=== PATIENT | female | born 1965 | race Caucasian/White ===

== ENCOUNTER → 2016-06-30 | Outpatient (CLI) | payer OTHER ==
--- OUTSIDE RECORDS SUMMARY | 2016-06-30 11:18 | XMS REPORT ---
Author Author JARED RUTH eClinicalWorks Address Unknown Phone Unavailable Care Team Providers Care Bi Specialist Name Role Phone JARED RUTH CP Unavailable Allergies, Adverse Reactions, Alerts Substance Reaction Event Type N.K.D.A. Info Not Available Non Drug Allergy Problems Problem Type Condition Code Onset Dates Condition Status Assessment Unspecified asthma J45.909 Active Problem Allergic rhinitis due to pollen J30.1 Active Assessment Hyperlipidemia E78.5 Active Problem Hyperlipidemia E78.5 Active Problem Obsessive-compulsive disorder F42 Active Problem Migraine, unspecified, not intractable, without status migrainosus G43.909 Active Problem Unspecified asthma J45.909 Active Problem Tension headache G44.209 Active Problem Depression F32.9 Active Problem Elevated blood-pressure reading without diagnosis of hypertension R03.0 Active Assessment Tension headache G44.209 Active Assessment Migraine, unspecified, not intractable, without status migrainosus G43.909 Active Assessment Allergic rhinitis due to pollen J30.1 Active Assessment Depression F32.9 Active Medications Medication Code System Code Instructions Start Date End Date Status Dosage Loratadine [facility] 82151378779 10 MG TAKE ONE TABLET BY MOUTH AT BEDTIME ProAir HFA [facility] [address]-80 90 mcg/actuation May 21, 2014 inhale 2 puffs by Inhalation route every 4 hours as needed PRN shortness of breath/ cough Tizanidine HCl [facility] [address]-24 2 MG Orally every 8 hrs Feb 13, 2015 1 tablet as needed Imitrex [facility] [address]-44 100 mg October 19, 2013 1 tablet by Oral route 1 time per day and repeat once more after 2 hours if headache recurs PRN for migraine Simvastatin [facility] [address]-97 40 MG Orally Once a day 1 tablet in the evening Zoloft [facility] [address]-31 100 MG Orally Once a day November 12, 2015 2 tablet Procedures Procedure Coding System Code Date Office Visit, Est Pt., Level 3 CPT-4 07433 December 05, 2015 Vital Signs Date/Time: December 05, 2015 Cardiac Monitoring Heart Rate 78 bpm Weight 237.2 lbs Height 63 in Blood Pressure Diastolic 83 mmHg Blood Pressure Systolic 132 mmHg Results No Known Results Summary Purpose eClinicalWorks Submission
--- NOTE | 2016-07-01 16:55 | Diagnostic Imaging Report ---
EXAMINATION: Bilateral screening mammogram with a Computer Aided Detection (CAD) system. INDICATION: Screening. PERSONAL HISTORY: No current complaints stated on the questionnaire. COMPARISON: 10/30/2014. FINDINGS: The breasts are composed of scattered fibroglandular densities. There are from scattered benign-appearing calcifications. There is an oval focal asymmetry seen in the lateral aspect of the left breast that appears more prominent compared to the prior exam. The right breast demonstrates no definite change. IMPRESSION: Focal compression views and ultrasound evaluation for a 5 mm focal asymmetry in the left breast lateral aspect would be recommended. ACR BI-RADS Category 0: Incomplete. (Needs additional imaging evaluation). Result letter will be mailed to the patient. Note: At least 10% of breast cancer is not imaged by mammography. Dictated by: Dictated on workstation # [id number]
== END ==
LOC: RAD 11:15
PROVIDERS: ATTEND Family Medicine
DX: Z12.31 Encounter for screening mammogram for malignant neoplasm of breast (principal)
CPT/HCPCS: 77067

== ENCOUNTER → 2016-07-16 | Outpatient (CLI) | payer OTHER ==
--- NOTE | 2016-07-16 18:37 | Diagnostic Imaging Report ---
EXAMINATION: Ultrasound of the left breast. INDICATION: Abnormal mammogram. FINDINGS: The screening mammogram performed on 06/30/2016 noted a 5 mm focal asymmetry in the lateral aspect of the left breast. The diagnostic mammogram performed earlier today suggests that this density was most likely benign. On this exam, in the 2 o'clock position of the left breast, roughly 3 cm from the nipple, there is a 5 x 10 mm oval avascular hyperechoic area. This measures larger than the density seen on the mammogram, and I am not certain that this finding and the mammographic finding are one and the same. This hyperechoic lesion is of uncertain etiology, although most likely this represents a small lipoma. There is no other discrete solid or cystic mass identified. IMPRESSION: There is a small 10 mm hypoechoic lesion in the 2 o'clock position of the left breast. Whether this corresponds to the density seen on mammogram is not certain. This finding is most likely benign, but a short-term (three-month) followup ultrasound exam would be recommended for further evaluation. ACR BI-RADS Category 3: Probably benign findings. Dictated by: Dictated on workstation # [id number]
--- NOTE | 2016-07-16 20:03 | Diagnostic Imaging Report ---
INDICATION: Abnormal screening mammogram. EXAMINATION: Left breast digital diagnostic mammogram with CAD. The current study was also evaluated with a Computer Aided Detection (CAD) system. FINDINGS: The screening mammogram performed on 06/30/16 noted a small, 5 mm, oval asymmetry in the lateral aspect of the left breast. This did seem somewhat more conspicuous than on the prior exam of 10/30/14. The compression views of this area show that it has a generally benign appearance. I would recommend that ultrasound be performed to better evaluate this finding. IMPRESSION: The small nodular density in the lateral aspect of the left breast is most likely a benign process. Ultrasound would be recommend for further study. ACR BI-RADS Category 0: Incomplete. (Needs additional imaging evaluation). Result letter will be mailed to the patient. Note: At least 10% of breast cancer is not imaged by mammography. Dictated by: Dictated on workstation # [id number]
== END ==
LOC: RAD 07:39
PROVIDERS: ATTEND Family Medicine
DX: R92.8 Other abnormal and inconclusive findings on diagnostic imaging of breast (principal)
CPT/HCPCS: 76642

== ENCOUNTER → 2016-10-26 | Outpatient (CLI) | payer OTHER ==
--- NOTE | 2016-10-26 19:15 | Diagnostic Imaging Report ---
Left breast ultrasound. INDICATION: Follow-up lesion seen on prior exam. COMPARISON: 07/16/2016. FINDINGS: There is a circumscribed oval hyperechoic mass similar to the prior study at the 2 o'clock zone 3 cm from the nipple measuring 0.9 x 0.5 x 0.8 cm. No significant changes seen. Surrounding tissue appears unremarkable. No internal vascularity with color Doppler is noted. IMPRESSION: Hyperechoic lesion at the 2 o'clock zone is unchanged and may relate to a prominent fat lobule. Another follow-up ultrasound when the patient is due for her next bilateral mammogram in June 2017 is recommended to ensure stability. ACR BI-RADS Category 3: Probably benign findings. Dictated by: Dictated on workstation # [id number]
== END ==
LOC: RAD 13:05
PROVIDERS: ATTEND Family Medicine
DX: R92.8 Other abnormal and inconclusive findings on diagnostic imaging of breast (principal)
CPT/HCPCS: 76642

== ENCOUNTER 2017-05-10 10:30 | Emergency (ER) | payer SELFPAY ==
[~2017-05-10] VITALS: Ht 160 cm; Wt 108.9 kg
--- OUTSIDE RECORDS SUMMARY | 2017-05-10 10:41 | XMS REPORT ---
Author Author FARAZ JARED Organization [facility] Address [address] [place] [address] Care Team Providers Care Stretch Press Operator Name Role Phone RAMON RUTHY Unavailable PROBLEMS Type Condition ICD9-CM Code [id number] Code Onset Dates Condition Status SNOMED Code Problem Allergic rhinitis due to pollen J30.1 Active 32195189 Problem Tension headache G44.209 Active 409290971 Problem Unspecified asthma J45.909 Active 549116738 Problem Migraine, unspecified, not intractable, without status migrainosus G43.909 Active 01807142 Problem Obsessive-compulsive disorder F42 Active 512228608 Problem Elevated blood-pressure reading without diagnosis of hypertension R03.0 Active 595753981 Problem Abnormal mammogram of left breast R92.8 Active 552116259 Problem Depression F32.9 Active 06327973 Problem Hyperlipidemia E78.5 Active 96757525 ALLERGIES Substance Reaction Event Type Date Status N.K.D.A. Unknown Non Drug Allergy May, Unknown SOCIAL HISTORY No smoking Hx information available PLAN OF CARE Activity Details Follow Up 1 Year Reason: VITAL SIGNS Height 63 in 2016-06-17 Weight 245 lbs 2016-06-17 Temperature 97.8 degrees Fahrenheit 2016-06-17 Heart Rate 88 bpm 2016-06-17 Respiratory Rate 20 2016-06-17 BMI 43.40 kg/m2 2016-06-17 Blood pressure systolic 100 mmHg 2016-06-17 Blood pressure diastolic 72 mmHg 2016-06-17 MEDICATIONS Medication Instructions Dosage Frequency Start Date End Date Duration Status ProAir HFA 90 mcg/actuation inhale 2 puffs by Inhalation route every 4 hours as needed PRN shortness of breath/cough Apr, Active Imitrex 100 mg 1 tablet by Oral route 1 time per day and repeat once more after 2 hours if headache recurs PRN for migraine September, Active Zoloft 100 MG Orally Once a day 2 tablet 24h Oct, 90 days Active Ibuprofen 600 MG Orally 3 times a day 1 tablet as needed 8h 30 days Active Simvastatin 40 MG Orally Once a day 1 tablet in the evening 24h 30 days Active Loratadine 10 MG TAKE ONE TABLET BY MOUTH AT BEDTIME 30 Active RESULTS Name Result Date Reference Range PAP TEST W/ HPV REGARDLESS 2016-06-17 DIAGNOSIS: Specimen adequacy: Clinician provided ICD10: Performed by: . . Note: HPV, high-risk Negative Negative PDF Report 2016-06-17 PDF Report1 [facility] Mammogram, Bilateral Screening 2016-06-30 PROCEDURES Procedure Date Ordered Related Diagnosis Body Site SPECIMEN HANDLING Jun 17, 2016 Preventive Care Est Pt. Age 40-64 Jun 17, 2016 IMMUNIZATIONS No Known Immunizations
--- OUTSIDE RECORDS SUMMARY | 2017-05-10 10:41 | XMS REPORT ---
Author Author JARED RUTH eClinicalWorks Address Unknown Phone Unavailable Care Team Providers Care Supplier Quality Manager Name Role Phone JARED RUTH CP Unavailable [...] Start Date End Date Status Dosage Loratadine [facility] 13297434030 10 MG TAKE ONE TABLET BY MOUTH AT BEDTIME ProAir HFA [facility] [address]-91 90 mcg/actuation May 21, 2014 inhale 2 puffs by Inhalation route every 4 hours as needed PRN shortness of breath/ cough Tizanidine HCl [facility] [address]-64 2 MG Orally every 8 hrs Feb 13, 2015 1 tablet as needed Imitrex [facility] [address]-56 100 mg October 19, 2013 1 tablet by Oral route 1 time per day and repeat once more after 2 hours if headache recurs PRN for migraine Simvastatin [facility] [address]-16 40 MG Orally Once a day 1 tablet in the evening Zoloft [facility] [address]-15 100 MG Orally Once a day November 12, 2015 2 tablet Procedures Procedure Coding System Code Date Office Visit, Est Pt., Level 3 CPT-4 93002 December 05, 2015 Vital Signs Date/Time: December 05, 2015 Cardiac Monitoring Heart Rate 78 bpm Weight 237.2 lbs Height 63 in Blood Pressure Diastolic 83 mmHg Blood Pressure Systolic 132 mmHg Results No Known Results Summary Purpose eClinicalWorks Submission
--- OUTSIDE RECORDS SUMMARY | 2017-05-10 10:41 | XMS REPORT ---
Author Author JARED RUTH Organization [facility] Address [address] [place] [address] Care Team Providers Care Fabrication Specialist Name Role Phone JARED RUTH Unavailable PROBLEMS Type Condition ICD9-CM Code [id number] Code Onset Dates Condition Status SNOMED Code Problem Allergic rhinitis due to pollen J30.1 Active 26982054 Problem Tension headache G44.209 Active 827143048 Problem Unspecified asthma J45.909 Active 704010233 Problem Migraine, unspecified, not intractable, without status migrainosus G43.909 Active 41962475 Problem Obsessive-compulsive disorder F42 Active 192543987 Problem Elevated blood-pressure reading without diagnosis of hypertension R03.0 Active 478628919 Problem Abnormal mammogram of left breast R92.8 Active 637893347 Problem Depression F32.9 Active 41619613 Problem Hyperlipidemia E78.5 Active 06630289 ALLERGIES No Information SOCIAL HISTORY Never Assessed PLAN OF CARE VITAL SIGNS MEDICATIONS Unknown Medications RESULTS Name Result Date Reference Range HEPATITIS PROFILE 2016-07-06 Hep A Ab, IgM Negative Negative HBsAg Screen Negative Negative Hep B Core Ab, IgM Negative Negative Hep C Virus Ab <0.1 0.0-0.9 PROCEDURES Procedure Date Ordered Result Body Site ACUTE HEPATITIS PANEL Jul 06, 2016 VENIPUNCT, ROUTINE* Jul 06, 2016 IMMUNIZATIONS No Known Immunizations MEDICAL (GENERAL) HISTORY Type Description Date Medical History asthma Medical History hyperlipidemia Medical History depression Medical History anxiety Medical History obsessive-compulsive personality disorder Medical History cervical cancer: [facility]; s/p MICHELL/BSO w/ Dr. Guzman in 2007. 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
--- OUTSIDE RECORDS SUMMARY | 2017-05-10 10:41 | XMS REPORT ---
Author JARED Duran eClinicalWorks Address Unknown Phone Unavailable Care Team Providers Care Roustabout Pusher Name Role Phone JARED RUTH Unavailable Allergies, Adverse Reactions, Alerts Substance Reaction Event Type N.K.D.A. Info Not Available Non Drug Allergy Problems Problem Type Condition Code Onset Dates Condition Status Assessment Obsessive compulsive disorder 300.3 Active Assessment Hyperlipidemia 272.4 Active Assessment Tension headache 307.81 Active Problem Obsessive compulsive disorder 300.3 Active Problem Depression 311 Active Problem Hyperlipidemia 272.4 Active Problem Tension headache 307.81 Active Problem Allergic rhinitis due to pollen 477.0 Active Problem Elevated blood pressure reading without diagnosis of hypertension 796.2 Active Problem Asthma, unspecified, unspecified status 493.90 Active Assessment Nevus 216.9 Active Assessment Migraine headache 346.90 Active Assessment Asthma, unspecified, unspecified status 493.90 Active Assessment Neck muscle spasm 728.85 Active Medications Medication Code System Code Instructions Start Date End Date Status Dosage Loratadine [facility] [address]-50 10 mg Jun 08, 2014 take 1 tablet by Oral route 1 time per day take at hs Zoloft [facility] [address]-35 100 mg 1 TAB orally once a day Jun 08, 2014 take 2 tablets by Oral route 1 time per day Tizanidine HCl [facility] [address]-34 2 MG Orally every 8 hrs Feb 13, 2015 1 tablet as needed Ibuprofen [facility] [address]-73 600 MG Orally Three times a day as needed Feb 13, 2015 Jun 13, 2015 1 tablet Simvastatin [facility] [address]-63 40 MG Orally Once a day 1 tablet in the evening Imitrex [facility] [address]-37 100 mg October 19, 2013 1 tablet by Oral route 1 time per day and repeat once more after 2 hours if headache recurs PRN for migraine ProAir HFA [facility] [address]-34 90 mcg/actuation May 21, 2014 inhale 2 puffs by Inhalation route every 4 hours as needed PRN shortness of breath/ cough Procedures Procedure Coding System Code Date Office Visit, Est Pt., Level 3 CPT-4 80494 Feb 13, 2015 Vital Signs Date/Time: Feb 13, 2015 Temperature 98.0 F Weight 243.7 lbs Height 63 in BMI 43.16 Index Blood Pressure Diastolic 90 mmHg Blood Pressure Systolic 119 mmHg Cardiac Monitoring Heart Rate 88 bpm Results No Known Results Summary Purpose eClinicalWorks Submission
--- OUTSIDE RECORDS SUMMARY | 2017-05-10 10:41 | XMS REPORT ---
Author Author FARAZ JARED Organization [facility] Address [address] [place] [address] Care Team Providers Care Special Procedures Tech Name Role Phone ROBERT RUTHHANY Unavailable PROBLEMS Type Condition ICD9-CM Code [id number] Code Onset Dates Condition Status SNOMED Code Problem Allergic rhinitis due to pollen J30.1 Active 94053750 Problem Tension headache G44.209 Active 908088348 Problem Unspecified asthma J45.909 Active 050982668 Problem Migraine, unspecified, not intractable, without status migrainosus G43.909 Active 52326970 Problem Obsessive-compulsive disorder F42 Active 398158834 Problem Elevated blood-pressure reading without diagnosis of hypertension R03.0 Active 213085839 Problem Abnormal mammogram of left breast R92.8 Active 440480702 Problem Depression F32.9 Active 19767051 Problem Hyperlipidemia E78.5 Active 54617574 ALLERGIES No Information SOCIAL HISTORY Never Assessed PLAN OF CARE VITAL SIGNS MEDICATIONS Medication Instructions Dosage Frequency Start Date End Date Duration Status Simvastatin 40 mg Orally Once a day 1 tablet in the evening 24h 30 days Active RESULTS No Results PROCEDURES No Known procedures IMMUNIZATIONS No Known Immunizations MEDICAL (GENERAL) HISTORY [...]
--- OUTSIDE RECORDS SUMMARY | 2017-05-10 10:41 | XMS REPORT ---
Author Author FARAZ JARED Organization [facility] Address [address] [place] [address] Care Team Providers Care Medical Reception Name Role Phone ROBERT RUTHHANY Unavailable PROBLEMS Type Condition ICD9-CM Code [id number] Code Onset Dates Condition Status SNOMED Code Problem Allergic rhinitis due to pollen J30.1 Active 74753737 Problem Tension headache G44.209 Active 997050078 Problem Unspecified asthma J45.909 Active 823084915 Problem Migraine, unspecified, not intractable, without status migrainosus G43.909 Active 90498450 Problem Obsessive-compulsive disorder F42 Active 317606911 Problem Elevated blood-pressure reading without diagnosis of hypertension R03.0 Active 809530245 Problem Abnormal mammogram of left breast R92.8 Active 453451228 Problem Depression F32.9 Active 96187993 Problem Hyperlipidemia E78.5 Active 86787320 ALLERGIES Unknown Allergies SOCIAL HISTORY No smoking Hx information available PLAN OF CARE VITAL SIGNS MEDICATIONS Unknown Medications RESULTS Name Result Date Reference Range LIPID PANEL 2016-06-29 Cholesterol, Total 217 100-199 Triglycerides 100 0-149 HDL Cholesterol 87 >39 VLDL Cholesterol Brian 20 5-40 LDL Cholesterol Calc 110 0-99 Comment: CMP 2016-06-29 Glucose, Serum 89 65-99 BUN 17 6-24 Creatinine, Serum 0.87 0.57-1.00 eGFR If NonAfricn Am 78 >59 eGFR If Africn Am 90 >59 BUN/Creatinine Ratio 20 9-23 Sodium, Serum 144 134-144 Potassium, Serum 4.5 3.5-5.2 Chloride, Serum 102 96-106 Carbon Dioxide, Total 23 18-29 Calcium, Serum 8.7 8.7-10.2 Protein, Total, Serum 6.8 6.0-8.5 Albumin, Serum 4.3 3.5-5.5 Globulin, Total 2.5 1.5-4.5 A/G Ratio 1.7 1.1-2.5 Bilirubin, Total 0.3 0.0-1.2 Alkaline Phosphatase, S 87 39-117 AST (SGOT) 40 0-40 ALT (SGPT) 40 0-32 PROCEDURES Procedure Date Ordered Related Diagnosis Body Site LIPID PANEL Jun 29, 2016 COMPREHEN METABOLIC PANEL Jun 29, 2016 VENIPUNCT, ROUTINE* Jun 29, 2016 IMMUNIZATIONS No Known Immunizations
--- OUTSIDE RECORDS SUMMARY | 2017-05-10 10:41 | XMS REPORT ---
Author Author FARAZ JARED Organization [facility] Address [address] [place] [address] Care Team Providers Care Elevator Starter Name Role Phone ROBERT RUTHHANY Unavailable PROBLEMS Type Condition ICD9-CM Code [id number]-PF Code Onset Dates Condition Status SNOMED Code Problem Allergic rhinitis due to pollen J30.1 Active 58818003 Problem Tension headache G44.209 Active 313679572 Problem Unspecified asthma J45.909 Active 587040182 Problem Migraine, unspecified, not intractable, without status migrainosus G43.909 Active 50112193 Problem Obsessive-compulsive disorder F42 Active 366474584 Problem Elevated blood-pressure reading without diagnosis of hypertension R03.0 Active 085518751 Problem Abnormal mammogram of left breast R92.8 Active 161020434 Problem Depression F32.9 Active 69162346 Problem Hyperlipidemia E78.5 Active 71558172 ALLERGIES No Information SOCIAL HISTORY Never Assessed PLAN OF CARE VITAL SIGNS MEDICATIONS Unknown Medications RESULTS Name Result Date Reference Range Mammogram Dx, Left 2016-07-16 PROCEDURES No Known procedures IMMUNIZATIONS No Known [...]
--- OUTSIDE RECORDS SUMMARY | 2017-05-10 10:41 | XMS REPORT ---
Author Author LADARIUS ARIZMENDI eClinicalWorks Address Unknown Phone Unavailable Care Team Providers Care News Editor Name Role Phone LADARIUS ARIZMENDI CP Unavailable Allergies, Adverse Reactions, Alerts Substance Reaction Event Type N.K.D.A. Info Not Available Non Drug Allergy Problems Problem Type Condition Code Onset Dates Condition Status Assessment Fracture of head of right humerus, closed, initial encounter S42.201A Active Problem Allergic rhinitis due to pollen J30.1 Active Assessment Fall, initial encounter W19.XXXA Active Problem Hyperlipidemia E78.5 Active Problem Obsessive-compulsive disorder F42 Active Problem Migraine, unspecified, not intractable, without status migrainosus G43.909 Active Problem Unspecified asthma J45.909 Active Problem Tension headache G44.209 Active Problem Depression F32.9 Active Problem Elevated blood-pressure reading without diagnosis of hypertension R03.0 Active Medications Medication Code System Code Instructions Start Date End Date Status Dosage Simvastatin [facility] [address]-52 40 MG Orally Once a day 1 tablet in the evening Hydrocodone-Acetaminophen [facility] [address]-08 5-325 MG Orally every 6 hrs Jan 14, 2016 Jan 17, 2016 1-2 tablet as needed Loratadine [facility] 91668580111 10 MG TAKE ONE TABLET BY MOUTH AT BEDTIME Zoloft [facility] [address]-48 100 MG Orally Once a day November 12, 2015 2 tablet ProAir HFA [facility] [address]-87 90 mcg/actuation May 21, 2014 inhale 2 puffs by Inhalation route every 4 hours as needed PRN shortness of breath/ cough Ibuprofen [facility] [address]-28 200 MG Orally every 6 hrs 1 tablet as needed Tylenol [facility] [address]-87 325 MG Orally every 6 hrs 2 tablets as needed Tizanidine HCl [facility] [address]-76 2 MG Orally every 8 hrs Feb 13, 2015 1 tablet as needed Imitrex [facility] [address]-31 100 mg October 19, 2013 1 tablet by Oral route 1 time per day and repeat once more after 2 hours if headache recurs PRN for migraine Procedures Procedure Coding System Code Date Office Visit, Est Pt., Level 3 CPT-4 38912 Jan 14, 2016 X-RAY EXAM OF ELBOW CPT-4 90172 Jan 14, 2016 X-RAY EXAM OF SHOULDER CPT-4 83840 Jan 14, 2016 Vital Signs Date/Time: Jan 14, 2016 Cardiac Monitoring Heart Rate 80 bpm Weight 238.0 lbs Height 63 in BMI 42.16 Index Blood Pressure Diastolic 86 mmHg Blood Pressure Systolic 130 mmHg Results No Known Results Summary Purpose eClinicalWorks Submission
--- OUTSIDE RECORDS SUMMARY | 2017-05-10 10:42 | XMS REPORT ---
Author Author JARED RUTH eClinicalWorks Address Unknown Phone Unavailable Care Team Providers Care Inspector Fibrous Wallboard Name Role Phone JARED RUTH CP Unavailable Allergies No Known Allergies Problems Problem Type Condition ICD-9 Code Onset Dates Condition Status Assessment Hyperlipidemia 272.4 Active Assessment Tension headache 307.81 Active Problem Obsessive compulsive disorder 300.3 Active Problem Depression 311 Active Problem Hyperlipidemia 272.4 Active Problem Tension headache 307.81 Active Problem Allergic rhinitis due to pollen 477.0 Active Problem Elevated blood pressure reading without diagnosis of hypertension 796.2 Active Problem Asthma, unspecified, unspecified status 493.90 Active Medications No Known Medications Procedures Procedure Coding System Code Date LIPID PANEL CPT-4 64293 Feb 14, 2015 VENIPUNCT, ROUTINE* CPT-4 48459 Feb 14, 2015 COMPREHEN METABOLIC PANEL CPT-4 18617 Feb 14, 2015 Results Name Result Date Reference Range Unit Abnormality Flag ROUTINE VENIPUNCTURE Summary Purpose eClinicalWorks Submission
--- OUTSIDE RECORDS SUMMARY | 2017-05-10 10:42 | XMS REPORT ---
Author Author SAURABH WEST [facility] Address [address] [place] [address] Care Team Providers Care Crusher Feeder Name Role Phone SAURABH WEST Unavailable PROBLEMS Type Condition ICD9-CM Code [id number] Code Onset Dates Condition Status SNOMED Code Problem Allergic rhinitis due to pollen J30.1 Active 94015343 Problem Unspecified asthma J45.909 Active 449866842 Problem Tension headache G44.209 Active 315418650 Problem Migraine, unspecified, not intractable, without status migrainosus G43.909 Active 41049056 Problem Hyperlipidemia E78.5 Active 06900050 Problem Abnormal mammogram of left breast R92.8 Active 808789452 Problem Elevated blood-pressure reading without diagnosis of hypertension R03.0 Active 761593868 Problem Obsessive-compulsive disorder F42 Active 026796948 Problem Depression F32.9 Active 03769468 ALLERGIES Substance Reaction Event Type Date Status N.K.D.A. Unknown Non Drug Allergy Apr, Unknown SOCIAL HISTORY No smoking Hx information available PLAN OF CARE Activity Details Follow Up prn Reason: VITAL SIGNS Height 63 in 2016-05-21 Weight 240.5 lbs 2016-05-21 Temperature 98.3 degrees Fahrenheit 2016-05-21 Heart Rate 72 bpm 2016-05-21 Respiratory Rate 18 2016-05-21 BMI 42.60 kg/m2 2016-05-21 Blood pressure systolic 124 mmHg 2016-05-21 Blood pressure diastolic 78 mmHg 2016-05-21 MEDICATIONS Medication Instructions Dosage Frequency Start Date End Date Duration Status ProAir HFA 90 mcg/actuation inhale 2 puffs by Inhalation route every 4 hours as needed PRN shortness of breath/cough Apr, Active Ibuprofen 600 MG Orally 3 times a day 1 tablet as needed 8h 30 days Active Flexeril 10 mg 1 tablet by Oral route 3 times per day PRN muscle spasm. may cause drowsiness. September, Active Tizanidine HCl 2 MG Orally every 8 hrs 1 tablet as needed 8h Jan, Active Simvastatin 40 MG Orally Once a day 1 tablet in the evening 24h Active Imitrex 100 mg 1 tablet by Oral route 1 time per day and repeat once more after 2 hours if headache recurs PRN for migraine September, Active Zoloft 100 MG Orally Once a day 2 tablet 24h Oct, 30 day(s) Active Loratadine 10 MG TAKE ONE TABLET BY MOUTH AT BEDTIME 30 Active RESULTS No Results PROCEDURES Procedure Date Ordered Related Diagnosis Body Site Office Visit, Est Pt., Level 3 May 21, 2016 IMMUNIZATIONS No Known Immunizations
--- OUTSIDE RECORDS SUMMARY | 2017-05-10 10:42 | XMS REPORT ---
Author Author JARED RUTH [employer] Address Unknown Phone Unavailable Care Team Providers Care Presentation Designer Name Role Phone JARED RUTH CP Unavailable Allergies No Known Allergies Problems Problem Type Condition Code Onset Dates Condition Status Assessment Hyperlipidemia 272.4 Active Problem Obsessive compulsive disorder 300.3 Active Problem Depression 311 Active Problem Hyperlipidemia 272.4 Active Problem Tension headache 307.81 Active Problem Allergic rhinitis due to pollen 477.0 Active Problem Elevated blood pressure reading without diagnosis of hypertension 796.2 Active Problem Asthma, unspecified, unspecified status 493.90 Active Medications No Known Medications Procedures Procedure Coding System Code Date COMPREHEN METABOLIC PANEL CPT-4 61568 Jul 04, 2015 VENIPUNCT, ROUTINE* CPT-4 23879 Jul 04, 2015 LIPID PANEL CPT-4 30265 Jul 04, 2015 Results Name Result Date Reference Range Unit Abnormality Flag ROUTINE VENIPUNCTURE Summary Purpose eClinicalWorks Submission
--- OUTSIDE RECORDS SUMMARY | 2017-05-10 10:42 | XMS REPORT ---
Author Author SAURABH WEST [facility] [address] [facility] Address [address] [place] [address] Care Team Providers Care Geodetic Engineer Name Role Phone SAURABH WEST Unavailable PROBLEMS Type Condition ICD9-CM Code [id number] Code Onset Dates Condition Status SNOMED Code Problem Allergic rhinitis due to pollen J30.1 Active 83313335 Problem Tension headache G44.209 Active 536275056 Problem Unspecified asthma J45.909 Active 579574764 Problem Migraine, unspecified, not intractable, without status migrainosus G43.909 Active 09621266 Problem Obsessive-compulsive disorder F42 Active 567558241 Problem Elevated blood-pressure reading without diagnosis of hypertension R03.0 Active 657728588 Problem Abnormal mammogram of left breast R92.8 Active 999210250 Problem Depression F32.9 Active 77027470 Problem Hyperlipidemia E78.5 Active 71894657 ALLERGIES No Known Allergies SOCIAL HISTORY Never Assessed PLAN OF CARE Activity Details Follow Up prn Reason: VITAL SIGNS Height 63 in 2016-07-06 Weight 241.0 lbs 2016-07-06 Temperature 97.9 degrees Fahrenheit 2016-07-06 Heart Rate 80 bpm 2016-07-06 Respiratory Rate 22 2016-07-06 BMI 42.69 kg/m2 2016-07-06 Blood pressure systolic 117 mmHg 2016-07-06 Blood pressure diastolic 83 mmHg 2016-07-06 MEDICATIONS Medication Instructions Dosage Frequency Start Date End Date Duration Status Zoloft 100 MG Orally Once a day 2 tablet 24h Oct, 90 days Active Levaquin 500 MG Orally Once a day 1 tablet 24h Jun, Jun, 10 day(s) Active Fluticasone Propionate 50 MCG/ACT Nasally twice a day 1 spray in each nostril 12h Jun, 30 day(s) Active Simvastatin 40 MG Orally Once a day 1 tablet in the evening 24h 30 days Active Imitrex 100 mg 1 tablet by Oral route 1 time per day and repeat once more after 2 hours if headache recurs PRN for migraine September, Active ProAir HFA 90 mcg/actuation inhale 2 puffs by Inhalation route every 4 hours as needed PRN shortness of breath/cough Apr, Active Ibuprofen 600 MG Orally 3 times a day 1 tablet as needed 8h 30 days Active Loratadine 10 MG TAKE ONE TABLET BY MOUTH AT BEDTIME 30 Active RESULTS No Results PROCEDURES No Known [...]
--- OUTSIDE RECORDS SUMMARY | 2017-05-10 10:42 | XMS REPORT ---
Author Author SAURABH WEST [facility] Address [address] [place] [address] Care Team Providers Care Anaesthesiologist Name Role Phone SAURABH WEST Unavailable PROBLEMS Type Condition ICD9-CM Code [id number] Code Onset Dates Condition Status SNOMED Code Problem Allergic rhinitis due to pollen J30.1 Active 41535444 Problem Tension headache G44.209 Active 771274520 Problem Unspecified asthma J45.909 Active 620426466 Problem Migraine, unspecified, not intractable, without status migrainosus G43.909 Active 40065605 Problem Obsessive-compulsive disorder F42 Active 317192047 Problem Elevated blood-pressure reading without diagnosis of hypertension R03.0 Active 258556520 Problem Abnormal mammogram of left breast R92.8 Active 508546310 Problem Depression F32.9 Active 02113102 Problem Hyperlipidemia E78.5 Active 83334012 ALLERGIES No Known Allergies SOCIAL HISTORY Never Assessed PLAN OF CARE Activity Details Follow Up prn Reason: VITAL SIGNS Height 63 in 2016-06-30 Weight 242 lbs 2016-06-30 Temperature 98.5 degrees Fahrenheit 2016-06-30 Heart Rate 96 bpm 2016-06-30 Respiratory Rate 26 2016-06-30 Oximetry on room air:94 % 2016-06-30 BMI 42.86 kg/m2 2016-06-30 Blood pressure systolic 110 mmHg 2016-06-30 Blood pressure diastolic 80 mmHg 2016-06-30 MEDICATIONS Medication Instructions Dosage Frequency Start Date End Date Duration Status Levaquin 500 MG Orally Once a day 1 tablet 24h Jun, Jun, 10 day(s) Active Zoloft 100 MG Orally Once a day 2 tablet 24h Oct, 90 days Active Loratadine 10 MG TAKE ONE TABLET BY MOUTH AT BEDTIME 30 Active ProAir HFA 90 mcg/actuation inhale 2 [...] headache recurs PRN for migraine September, Active RESULTS No Results PROCEDURES Procedure Date Ordered Result Body Site MEASURE BLOOD OXYGEN LEVEL Jun 30, 2016 IMMUNIZATIONS No Known Immunizations MEDICAL (GENERAL) [...]
--- OUTSIDE RECORDS SUMMARY | 2017-05-10 10:42 | XMS REPORT ---
Author Author FARAZ JARED Organization [facility] Address [address] [place] [address] Care Team Providers Care Wall Worker Name Role Phone RAMON RUTHY Unavailable PROBLEMS Type Condition ICD9-CM Code QKD07-HX Code Onset Dates Condition Status SNOMED Code Problem Allergic rhinitis due to pollen J30.1 Active 21524000 Problem Tension headache G44.209 Active 435725316 Problem Unspecified asthma J45.909 Active 550296460 Problem Migraine, unspecified, not intractable, without status migrainosus G43.909 Active 82425847 Problem Obsessive-compulsive disorder F42 Active 847447441 Problem Elevated blood-pressure reading without diagnosis of hypertension R03.0 Active 129947669 Problem Abnormal mammogram of left breast R92.8 Active 077616823 Problem Depression F32.9 Active 13137091 Problem Hyperlipidemia E78.5 Active 14522383 ALLERGIES No Information SOCIAL HISTORY Never Assessed PLAN OF CARE VITAL SIGNS MEDICATIONS No Known Medications RESULTS Name Result Date Reference Range Mammogram Dx, Left 2016-10-26 PROCEDURES No Known procedures IMMUNIZATIONS No Known [...]
--- OUTSIDE RECORDS SUMMARY | 2017-05-10 10:42 | XMS REPORT ---
Author Author JARED RUTH Organization [facility] Address [address] [place] [address] Care Team Providers Care Grab Hooker Name Role Phone JARED RUTH Unavailable PROBLEMS Type Condition ICD9-CM Code SKV83-TC Code Onset Dates Condition Status SNOMED Code Problem Tension headache G44.209 Active 717948685 Problem Allergic rhinitis due to pollen J30.1 Active 01342122 Problem Migraine, unspecified, not intractable, without status migrainosus G43.909 Active 78230734 Problem Hyperlipidemia E78.5 Active 96114084 Problem Elevated blood-pressure reading without diagnosis of hypertension R03.0 Active 728184208 Problem Unspecified asthma J45.909 Active 236159758 Problem Obsessive-compulsive disorder F42 Active 961735953 Problem Depression F32.9 Active 88678443 ALLERGIES Unknown Allergies SOCIAL HISTORY No smoking Hx information available PLAN OF CARE VITAL SIGNS MEDICATIONS Medication Instructions Dosage Frequency Start Date End Date Duration Status Ibuprofen 600 MG Orally 3 times a day 1 tablet as needed 8h 30 days Active RESULTS No Results PROCEDURES No Known procedures IMMUNIZATIONS No Known Immunizations
--- OUTSIDE RECORDS SUMMARY | 2017-05-10 10:42 | XMS REPORT ---
Author Author FARAZ JARED Organization [facility] Address [address] [place] [address] Care Team Providers Care Toy Assembler Wood Name Role Phone FARAZROBERT MELGARHANY Unavailable PROBLEMS Type Condition ICD9-CM Code INI64-BX Code Onset Dates Condition Status SNOMED Code Problem Allergic rhinitis due to pollen J30.1 Active 81883916 Problem Tension headache G44.209 Active 679133755 Problem Unspecified asthma J45.909 Active 761481398 Problem Migraine, unspecified, not intractable, without status migrainosus G43.909 Active 09007495 Problem Obsessive-compulsive disorder F42 Active 080049418 Problem Elevated blood-pressure reading without diagnosis of hypertension R03.0 Active 574447302 Problem Abnormal mammogram of left breast R92.8 Active 792820344 Problem Depression F32.9 Active 37506748 Problem Hyperlipidemia E78.5 Active 16066844 ALLERGIES No Information SOCIAL HISTORY Never Assessed PLAN OF CARE VITAL SIGNS MEDICATIONS No Known Medications RESULTS Name Result Date Reference Range [facility] 2016-10-26 Glucose, Serum 97 65-99 BUN 18 6-24 Creatinine, Serum 0.77 0.57-1.00 eGFR If NonAfricn Am 91 >59 eGFR If Africn Am 105 >59 BUN/Creatinine Ratio 23 9-23 Sodium, Serum 143 134-144 Potassium, Serum 4.5 3.5-5.2 Chloride, Serum 103 96-106 Carbon Dioxide, Total 25 18-29 Calcium, Serum 9.0 8.7-10.2 Protein, Total, Serum 6.3 6.0-8.5 Albumin, Serum 3.9 3.5-5.5 Globulin, Total 2.4 1.5-4.5 A/G Ratio 1.6 1.2-2.2 Bilirubin, Total 0.3 0.0-1.2 Alkaline Phosphatase, S 78 39-117 AST (SGOT) 24 0-40 ALT (SGPT) 25 0-32 PROCEDURES Procedure Date Ordered Result Body Site COMPREHEN METABOLIC PANEL October 26, 2016 VENIPUNCT, ROUTINE* October 26, 2016 IMMUNIZATIONS No Known Immunizations MEDICAL (GENERAL) [...]
--- OUTSIDE RECORDS SUMMARY | 2017-05-10 10:42 | XMS REPORT ---
Author JARED Duran [employer] Address Unknown Phone Unavailable Care Team Providers Care Real Estate Agent/Broker Name Role Phone JARED RUTH CP Unavailable Allergies, Adverse Reactions, Alerts Substance Reaction Event Type N.K.D.A. Info Not Available Non Drug Allergy Problems Problem Type Condition Code Onset Dates Condition Status Assessment Encounter for surveillance of abnormal nevi Z91.89 Active Problem Obsessive compulsive disorder 300.3 Active Problem Depression 311 Active Problem Hyperlipidemia 272.4 Active Problem Tension headache 307.81 Active Problem Allergic rhinitis due to pollen 477.0 Active Problem Elevated blood pressure reading without diagnosis of hypertension 796.2 Active Problem Asthma, unspecified, unspecified status 493.90 Active Medications Medication Code System Code Instructions Start Date End Date Status Dosage ProAir HFA [facility] [address]-91 90 mcg/actuation May 21, 2014 inhale 2 puffs by Inhalation route every 4 hours as needed PRN shortness of breath/ cough Tizanidine HCl [facility] [address]-46 2 MG Orally every 8 hrs Feb 13, 2015 1 tablet as needed Loratadine [facility] [address]-91 10 mg Jun 08, 2014 take 1 tablet by Oral route 1 time per day take at hs Imitrex [facility] [address]-05 100 mg October 19, 2013 1 tablet by Oral route 1 time per day and repeat once more after 2 hours if headache recurs PRN for migraine Zoloft [facility] [address]-32 100 mg 1 TAB orally once a day Jun 08, 2014 take 2 tablets by Oral route 1 time per day Ibuprofen [facility] [address]-05 600 MG Orally Three times a day as needed Feb 13, 2015 Jun 13, [address] [facility] [address]-24 40 MG Orally Once a day 1 tablet in the evening Procedures Procedure Coding System Code Date BIOPSY OF SKIN LESION CPT-4 92967 Mar 06, 2015 Vital Signs Date/Time: Mar 06, 2015 Temperature 97.5 F Weight 244.7 lbs Height 63 in BMI 43.34 Index Blood Pressure Diastolic 86 mmHg Blood Pressure Systolic 124 mmHg Cardiac Monitoring Heart Rate 84 bpm Results Name Result Date Reference Range Unit Abnormality Flag BIOPSY SKIN LESION (SINGLE) Summary Purpose eClinicalWorks Submission
--- OUTSIDE RECORDS SUMMARY | 2017-05-10 10:42 | XMS REPORT ---
Author Author FARAZ JARED Organization [facility] Address [address] [place] [address] Care Team Providers Care Occupational Health Nurse Supervisor Name Role Phone ROBERT RUTHHANY Unavailable PROBLEMS Type Condition ICD9-CM Code [id number] Code Onset Dates Condition Status SNOMED Code Problem Allergic rhinitis due to pollen J30.1 Active 76141951 Problem Tension headache G44.209 Active 672321019 Problem Unspecified asthma J45.909 Active 072026063 Problem Migraine, unspecified, not intractable, without status migrainosus G43.909 Active 01790425 Problem Obsessive-compulsive disorder F42 Active 744209398 Problem Elevated blood-pressure reading without diagnosis of hypertension R03.0 Active 136128260 Problem Abnormal mammogram of left breast R92.8 Active 079148889 Problem Depression F32.9 Active 60425353 Problem Hyperlipidemia E78.5 Active 60148681 ALLERGIES No Information SOCIAL HISTORY Never Assessed PLAN OF CARE VITAL SIGNS MEDICATIONS No Known Medications RESULTS No Results PROCEDURES No Known procedures [...]
--- OUTSIDE RECORDS SUMMARY | 2017-05-10 10:42 | XMS REPORT ---
Author Author FARAZ JARED Organization [facility] Address [address] [place] [address] Care Team Providers Care Magnetometer Operator Name Role Phone RAMON RUTHY Unavailable PROBLEMS Type Condition ICD9-CM Code XTF83-AU Code Onset Dates Condition Status SNOMED Code Problem Allergic rhinitis due to pollen J30.1 Active 73178138 Problem Tension headache G44.209 Active 434179870 Problem Unspecified asthma J45.909 Active 663627859 Problem Migraine, unspecified, not intractable, without status migrainosus G43.909 Active 57395259 Problem Obsessive-compulsive disorder F42 Active 912962626 Problem Elevated blood-pressure reading without diagnosis of hypertension R03.0 Active 803918515 Problem Abnormal mammogram of left breast R92.8 Active 745736060 Problem Depression F32.9 Active 91473208 Problem Hyperlipidemia E78.5 Active 81140460 ALLERGIES No Information SOCIAL HISTORY Never Assessed PLAN OF CARE VITAL SIGNS MEDICATIONS Unknown Medications RESULTS No Results PROCEDURES No Known [...]
--- OUTSIDE RECORDS SUMMARY | 2017-05-10 10:43 | XMS REPORT | Continuity of Care Document ---
Author Author [facility] Address Unknown Phone Unavailable Allergies Active Description Code Type Severity Reaction Onset Reported/Identified Relationship to Patient Clinical Status Yes No Known Drug Allergies [id number] Drug Allergy Unknown N/A 06/15/2007 Medications There is no data. Problems Date Dx Coded Attending Type Code Diagnosis Diagnosed By 09/19/2009 372.00 Acute Conjunctivitis, Unspecified 09/19/2009 GERMAN HU DO 372.00 Acute Conjunctivitis, Unspecified 09/19/2009 GERMAN HU DO 372.00 Acute Conjunctivitis, Unspecified 09/19/2009 JARED RUTH MD 372.00 Acute Conjunctivitis, Unspecified 09/19/2009 GERMAN HU DO 372.00 Acute Conjunctivitis, Unspecified 09/19/2009 JORGE A BRIZUELA BALWINDER R 372.00 Acute Conjunctivitis, Unspecified 09/19/2009 SHANELL JULES APRNINA R 372.00 Acute Conjunctivitis, Unspecified 09/19/2009 JARED RUTH MD 372.00 Acute Conjunctivitis, Unspecified 09/19/2009 KATHRINE VALDIVIA APRN 372.00 Acute Conjunctivitis, Unspecified 01/30/2010 110.9 Dermatophytosis, Of Unspecified Site 01/30/2010 300.4 DYSTHYMIA ( DEPRESSIVE NEUROSIS), PRIMARY 01/30/2010 462 Acute Pharyngitis 01/30/2010 GERMAN HU DO K 110.9 Dermatophytosis, Of Unspecified Site 01/30/2010 GERMAN HU DO K 300.4 DYSTHYMIA (DEPRESSIVE NEUROSIS), PRIMARY 01/30/2010 RADHIKA HU DOA K 462 Acute Pharyngitis 01/30/2010 RADHIKA HU DOA K 110.9 Dermatophytosis, Of Unspecified Site 01/30/2010 RADHIKA HU DOA K 300.4 DYSTHYMIA (DEPRESSIVE NEUROSIS), PRIMARY 01/30/2010 RADHIKA HU DOA K 462 Acute Pharyngitis 01/30/2010 JARED RUTH MD N 110.9 Dermatophytosis, Of Unspecified Site 01/30/2010 JARED RUTH MD N 300.4 DYSTHYMIA (DEPRESSIVE NEUROSIS), PRIMARY 01/30/2010 JARED RUTH MD 462 Acute Pharyngitis 01/30/2010 GERMAN HU DO K 110.9 Dermatophytosis, Of Unspecified Site 01/30/2010 GERMAN HU DO K 300.4 DYSTHYMIA (DEPRESSIVE NEUROSIS), PRIMARY 01/30/2010 GERMAN HU DO K 462 Acute Pharyngitis 01/30/2010 JORGE A MUSIC PASTOR, BALWINDER R 110.9 Dermatophytosis, Of Unspecified Site 01/30/2010 JORGE A MUSIC PASTOR, BALWINDER R 300.4 DYSTHYMIA (DEPRESSIVE NEUROSIS), PRIMARY 01/30/2010 JORGE A MUSIC PASTOR, BALWINDER R 462 Acute Pharyngitis 01/30/2010 JORGE A MUSIC PASTOR, BALWINDER R 110.9 Dermatophytosis, Of Unspecified Site 01/30/2010 JORGE A MUSIC PASTOR, BALWINDER R 300.4 DYSTHYMIA (DEPRESSIVE NEUROSIS), PRIMARY 01/30/2010 JORGE A MUSIC PASTOR, BALWINDER R 462 Acute Pharyngitis 01/30/2010 JARED RUTH MD 110.9 Dermatophytosis, Of Unspecified Site 01/30/2010 JARDE RUTH MD N 300.4 DYSTHYMIA (DEPRESSIVE NEUROSIS), PRIMARY 01/30/2010 JARED RUTH MD [id number] Acute Pharyngitis 01/30/2010 MICHAELL KATHRINE BRIZUELA L 110.9 Dermatophytosis, Of Unspecified Site 01/30/2010 DAVE VALDIVIA APRNA L 300.4 DYSTHYMIA (DEPRESSIVE NEUROSIS), PRIMARY 01/30/2010 KATHRINE VALDIVIA APRN L 462 Acute Pharyngitis 04/07/2010 180.9 CERVICAL CANCER 04/07/2010 V13.29 PERSONAL HISTORY OF OTHER GENITAL SYSTEM AND OBSTETRIC DISORDERS 04/07/2010 V72.31 ROUTINE PELVIC EXAM 04/07/2010 GERMAN HU DO K 180.9 CERVICAL CANCER 04/07/2010 GERMAN HU DO K V13.29 PERSONAL HISTORY OF OTHER GENITAL SYSTEM AND OBSTETRIC DISORDERS 04/07/2010 GERMAN HU DO K V72.31 ROUTINE PELVIC EXAM 04/07/2010 GERMAN HU DO K 180.9 CERVICAL CANCER 04/07/2010 GERMAN HU DO K V13.29 PERSONAL HISTORY OF OTHER GENITAL SYSTEM AND OBSTETRIC DISORDERS 04/07/2010 GERMAN HU DO K V72.31 ROUTINE PELVIC EXAM 04/07/2010 JARED RUTH MD 180.9 CERVICAL CANCER 04/07/2010 JARED RUTH MD N V13.29 PERSONAL HISTORY OF OTHER GENITAL SYSTEM AND OBSTETRIC DISORDERS 04/07/2010 JARED RUTH MD V72.31 ROUTINE PELVIC EXAM 04/07/2010 GERMAN HU DO K 180.9 CERVICAL CANCER 04/07/2010 GERMAN HU DO K V13.29 PERSONAL HISTORY OF OTHER GENITAL SYSTEM AND OBSTETRIC DISORDERS 04/07/2010 GERMAN HU DO K V72.31 ROUTINE PELVIC EXAM 04/07/2010 SHANELL JULES APRNINA R 180.9 CERVICAL CANCER 04/07/2010 SHANELL JULES APRNINA R V13.29 PERSONAL HISTORY OF OTHER GENITAL SYSTEM AND OBSTETRIC DISORDERS 04/07/2010 JORGE A BRIZUELA BALWINDER R V72.31 ROUTINE PELVIC EXAM 04/07/2010 SHANELL JULES APRNINA R 180.9 CERVICAL CANCER 04/07/2010 JORGE A BRIZUELA BALWINDER R V13.29 PERSONAL HISTORY OF OTHER GENITAL SYSTEM AND OBSTETRIC DISORDERS 04/07/2010 JORGE A BRIZUELA BALWINDER R V72.31 ROUTINE PELVIC EXAM 04/07/2010 JARED RUTH MD 180.9 CERVICAL CANCER 04/07/2010 JARED RUTH MD V13.29 PERSONAL HISTORY OF OTHER GENITAL SYSTEM AND OBSTETRIC DISORDERS 04/07/2010 JARED RUTH MD V72.31 ROUTINE PELVIC EXAM 04/07/2010 KATHRINE VALDIVIA APRN 180.9 CERVICAL CANCER 04/07/2010 KATHRINE VALDIVIA APRN L V13.29 PERSONAL HISTORY OF OTHER GENITAL SYSTEM AND OBSTETRIC DISORDERS 04/07/2010 KATHRINE VALDIVIA APRN L V72.31 ROUTINE PELVIC EXAM 01/05/2011 278.00 OBESITY 01/05/2011 V58.69 taking high- risk medication 01/05/2011 GERMAN HU DO 278.00 OBESITY 01/05/2011 GERMAN HU DO K V58.69 taking high-risk medication 01/05/2011 RADHIKA HU DOA K 278.00 OBESITY 01/05/2011 HU DO GERMAN K V58.69 taking high-risk medication 01/05/2011 JARED RUTH MD 278.00 OBESITY 01/05/2011 JARED RUTH MD V58.69 taking high-risk medication 01/05/2011 GERMAN HU DO K 278.00 OBESITY 01/05/2011 RADHIKA HU DOA K V58.69 taking high-risk medication 01/05/2011 JORGE A MUSIC PASTOR, BALWINDER R 278.00 OBESITY 01/05/2011 JORGE A BRIZUELA BALWINDER R V58.69 taking high-risk medication 01/05/2011 JORGE A BRIZUELA BALWINDER R 278.00 OBESITY 01/05/2011 SHANELL JULES APRNINA R V58.69 taking high-risk medication 01/05/2011 JARED RUTH MD 278.00 OBESITY 01/05/2011 JARED RUTH MD V58.69 taking high-risk medication 01/05/2011 KATHRINE VALDIVIA APRN L 278.00 OBESITY 01/05/2011 KATHRINE VALDIVIA APRN L V58.69 taking high-risk medication 09/03/2011 V76.47 SPECIAL SCREENING FOR MALIGNANT NEOPLASMS VAGINA 09/03/2011 GERMAN HU DO K V76.47 SPECIAL SCREENING FOR MALIGNANT NEOPLASMS VAGINA 09/03/2011 GERMAN HU DO K V76.47 SPECIAL SCREENING FOR MALIGNANT NEOPLASMS VAGINA 09/03/2011 JARED RUTH MD V76.47 SPECIAL SCREENING FOR MALIGNANT NEOPLASMS VAGINA 09/03/2011 GERMAN HU DO K V76.47 SPECIAL SCREENING FOR MALIGNANT NEOPLASMS VAGINA 09/03/2011 BALWINDER JULES APRN R V76.47 SPECIAL SCREENING FOR MALIGNANT NEOPLASMS VAGINA 09/03/2011 BALWINDER JULES APRN R V76.47 SPECIAL SCREENING FOR MALIGNANT NEOPLASMS VAGINA 09/03/2011 JARED RUTH MD V76.47 SPECIAL SCREENING FOR MALIGNANT NEOPLASMS VAGINA 09/03/2011 KATHRINE VALDIVIA APRN V76.47 SPECIAL SCREENING FOR MALIGNANT NEOPLASMS VAGINA 11/12/2011 493.90 ASTHMA UNSPECIFIED 11/12/2011 784.0 HEADACHE 11/12/2011 HU DO, GERMAN K 493.90 ASTHMA UNSPECIFIED 11/12/2011 HU DO GERMAN K 784.0 HEADACHE 11/12/2011 MAYTE CARTWRIGHT GERMAN K 493.90 ASTHMA UNSPECIFIED 11/12/2011 MAYTE CARTWRIGHT GERMAN K 784.0 HEADACHE 11/12/2011 JARED RUTH MD 493.90 ASTHMA UNSPECIFIED 11/12/2011 JARED RUTH MD 784.0 HEADACHE 11/12/2011 HU GERMAN CARTWRIGHT K 493.90 ASTHMA UNSPECIFIED 11/12/2011 HU , GERMAN K 784.0 HEADACHE 11/12/2011 JORGE A MUSIC PASTOR, BALWINDER R 493.90 ASTHMA UNSPECIFIED 11/12/2011 JORGE A MUSIC PASTOR, BALWINDER R 784.0 HEADACHE 11/12/2011 JORGE A MUSIC PASTOR, BALWINDER R 493.90 ASTHMA UNSPECIFIED 11/12/2011 JORGE A MUSIC PASTOR, BALWINDER R 784.0 HEADACHE 11/12/2011 JARED RUTH MD 493.90 ASTHMA UNSPECIFIED 11/12/2011 JARED RUTH MD 784.0 HEADACHE 11/12/2011 MADL MUSIC PASTOR KATHRINE L 493.90 ASTHMA UNSPECIFIED 11/12/2011 MADL MUSIC PASTOR, KATHRINE L 784.0 HEADACHE 03/24/2012 462 PHARYNGITIS ACUTE 03/24/2012 784.91 POSTNASAL DRIP 03/24/2012 RADHIKA HU DOA K 462 PHARYNGITIS ACUTE 03/24/2012 RADHIKA HU DOA K 784.91 POSTNASAL DRIP 03/24/2012 RADHIKA HU DOA K 462 PHARYNGITIS ACUTE 03/24/2012 RADHIKA HU DOA K 784.91 POSTNASAL DRIP 03/24/2012 JARED RUTH MD 462 PHARYNGITIS ACUTE 03/24/2012 JARED RUTH MD 784.91 POSTNASAL DRIP 03/24/2012 GERMAN HU DO K 462 PHARYNGITIS ACUTE 03/24/2012 HU RADHIKA CARTWRIGHTA K 784.91 POSTNASAL DRIP 03/24/2012 JORGE A MUSIC PASTOR, BALWINDER R 462 PHARYNGITIS ACUTE 03/24/2012 JORGE A MUSIC PASTOR, BALWINDER R 784.91 POSTNASAL DRIP 03/24/2012 JORGE A BRIZUELA, BALWINDER R 462 PHARYNGITIS ACUTE 03/24/2012 JORGE A BRIZUELA, BALWINDER R 784.91 POSTNASAL DRIP 03/24/2012 JARED RUTH MD 462 PHARYNGITIS ACUTE 03/24/2012 JARED RUTH MD 784.91 POSTNASAL DRIP 03/24/2012 SHEA MUSIC PASTOR, KATHRINE L 462 PHARYNGITIS ACUTE 03/24/2012 SHEA MUSIC PASTOR, KATHRINE L 784.91 POSTNASAL DRIP 09/12/2012 V73.81 HPV SCREENING 09/12/2012 HU DO, GERMAN K V73.81 HPV SCREENING 09/12/2012 HU DO, GERMAN K V73.81 HPV SCREENING 09/12/2012 JARED RUTH MD V73.81 HPV SCREENING 09/12/2012 JORGE A BRIZUELA, BALWINDER R V73.81 HPV SCREENING 09/12/2012 BALWINDER JULES APRN R V73.81 HPV SCREENING 09/12/2012 JARED RUTH MD V73.81 HPV SCREENING 09/12/2012 KATHRINE VALDIVIA APRN L V73.81 HPV SCREENING 12/20/2012 HU DO, GERMAN K 272.4 HYPERLIPIDEMIA 12/20/2012 HU DO, GERMAN K 300.00 ANXIETY UNSPEC 12/20/2012 HU DO, GERMAN K 477.0 ALLERGIC RHINITIS DUE TO POLLEN 12/20/2012 HU DO, GERMAN K 272.4 HYPERLIPIDEMIA 12/20/2012 HU DO, GERMAN K 300.00 ANXIETY UNSPEC 12/20/2012 HU DO, GERMAN K 477.0 ALLERGIC RHINITIS DUE TO POLLEN 12/20/2012 JARED RUTH MD N 272.4 HYPERLIPIDEMIA 12/20/2012 JARED RUTH MD 300.00 ANXIETY UNSPEC 12/20/2012 JARED RUTH MD 477.0 ALLERGIC RHINITIS DUE TO POLLEN 12/20/2012 BALWINDER JULES APRN R 272.4 HYPERLIPIDEMIA 12/20/2012 BALWINDER JULES APRN R 300.00 ANXIETY UNSPEC 12/20/2012 BALWINDER JULES APRN R 477.0 ALLERGIC RHINITIS DUE TO POLLEN 12/20/2012 BALWINDER JULES APRN R 272.4 HYPERLIPIDEMIA 12/20/2012 JORGE A MUSIC PASTOR, BALWINDER R 300.00 ANXIETY UNSPEC 12/20/2012 SHANELL JULES APRNINA R 477.0 ALLERGIC RHINITIS DUE TO POLLEN 12/20/2012 JARED RUTH MD N 272.4 HYPERLIPIDEMIA 12/20/2012 JARED RUTH MD N 300.00 ANXIETY UNSPEC 12/20/2012 JARED RUTH MD 477.0 ALLERGIC RHINITIS DUE TO POLLEN 12/20/2012 KATHRINE VALDIVIA APRN L 272.4 HYPERLIPIDEMIA 12/20/2012 KATHRINE VALDIVIA APRN L 300.00 ANXIETY UNSPEC 12/20/2012 KATHRINE VALDIVIA APRN L 477.0 ALLERGIC RHINITIS DUE TO POLLEN 03/30/2013 HU DO, GERMAN K 796.2 ELEVATED BLOOD PRESSURE READING WITHOUT DIAGNOSIS OF HYPERTENSION 03/30/2013 JARED RUTH MD N 796.2 ELEVATED BLOOD PRESSURE READING WITHOUT DIAGNOSIS OF HYPERTENSION 03/30/2013 BALWINDER JULES APRN R 796.2 ELEVATED BLOOD PRESSURE READING WITHOUT DIAGNOSIS OF HYPERTENSION 03/30/2013 BALWINDER JULES APRN R 796.2 ELEVATED BLOOD PRESSURE READING WITHOUT DIAGNOSIS OF HYPERTENSION 03/30/2013 JARED RUTH MD N 796.2 ELEVATED BLOOD PRESSURE READING WITHOUT DIAGNOSIS OF HYPERTENSION 03/30/2013 KATHRINE VALDIVIA APRN 796.2 ELEVATED BLOOD PRESSURE READING WITHOUT DIAGNOSIS OF HYPERTENSION 10/19/2013 SHANELL JULES APRNINA R 307.81 TENSION HEADACHE 10/19/2013 SHANELL JULES APRNINA R 723.1 CERVICALGIA 10/19/2013 SHANELL JULES APRNINA R 307.81 TENSION HEADACHE 10/19/2013 SHANELL JULES APRNINA R 723.1 CERVICALGIA 10/19/2013 JARED RUTH MD N 307.81 TENSION HEADACHE 10/19/2013 JARED RUTH MD N 723.1 CERVICALGIA 10/19/2013 KATHRINE VALDIVIA APRN L 307.81 TENSION HEADACHE 10/19/2013 KATHRINE VALDIVIA APRN L 723.1 CERVICALGIA 11/09/2013 SHANELL JULES APRNINA R 783.1 ABNORMAL WEIGHT GAIN 11/09/2013 JARED RUTH MD N 783.1 ABNORMAL WEIGHT GAIN 11/09/2013 MADL MUSIC PASTOR, KATHRINE L 783.1 ABNORMAL WEIGHT GAIN 07/03/2014 KATHRINE VALDIVIA APRN 381.01 ACUTE SEROUS OTITIS MEDIA 07/03/2014 KATHRINE VALDIVIA APRN 465.9 UPPER RESPIRATORY INFECTION 10/30/2014 Ot V76.12 10/30/2014 Ot V76.12 10/30/2014 Ot V76.12 10/30/2014 FLAKITO QUACHP Ot V76.12 06/30/2016 Ot V76.12 OTH SCREEN MAMMO-MALIGN NEOPLASM OF MALIK 06/30/2016 Ot V76.12 OTH SCREEN MAMMO-MALIGN NEOPLASM OF MALIK 06/30/2016 FLAKITO QUACH POLO COACH Ot V76.12 OTH SCREEN MAMMO-MALIGN NEOPLASM OF MALIK 06/30/2016 FLAKITO QUACH POLO COACH Ot V76.12 OTH SCREEN MAMMO-MALIGN NEOPLASM OF MALIK 07/01/2016 JARED RUTH MD Ot Z12.31 ENCNTR SCREEN MAMMOGRAM FOR MALIGNANT NE 07/02/2016 JARED RUTH MD Ot Z12.31 ENCNTR SCREEN MAMMOGRAM FOR MALIGNANT NE 07/16/2016 JARED RUTH MD Ot R92.8 OTH ABN AND INCONCLUSIVE FINDINGS ON DX 07/17/2016 JARED RUTH MD Ot R92.8 OTH ABN AND INCONCLUSIVE FINDINGS ON DX Procedures Code Description [place] [address] STREP A (IN-HOUSE) 04/20/2012 69740 MONO TEST (IN-HOUSE) 04/20/2012 25261 CULTURE THROAT 04/20/2012 36977 PAP SMEAR 09/13/2012 Q0091 PAP SMEAR OBTAIN SMEAR 09/13/2012 41355 ROUTINE VENIPUNCTURE 03/28/2013 43686 CBC 03/28/2013 75882 CMP 03/28/2013 42213 LIPID PANEL 03/28/2013 84289 ROUTINE VENIPUNCTURE 11/13/2013 11750 CBC 11/13/2013 [id number] GFR CALC (RESULT ONLY) 11/13/2013 10029 CMP 11/13/2013 20851 LIPID PANEL 11/13/2013 62362 TSH 11/13/2013 27861 INSULIN LEVEL 11/13/2013 Results There is no data. Encounters ACCT No. Visit Date/Time Discharge Status Pt. Type Provider Facility Loc./Unit Complaint [id number] 07/03/2014 13:47:00 07/03/2014 23:59:59 CLS Outpatient KATHRINE VALDIVIA APRN [id number] 06/08/2014 11:28:00 06/08/2014 23:59:59 CLS Outpatient JARED RUTH MD [id number] 11/13/2013 08:42:00 11/13/2013 23:59:59 CLS Outpatient BALWINDER JULES APRN [id number] 10/19/2013 15:39:00 10/19/2013 23:59:59 CLS Outpatient BALWINDER JULES APRN [id number] 06/21/2013 11:32:00 06/21/2013 23:59:59 CLS Outpatient JARED RUTH MD [id number] 03/30/2013 13:29:00 03/30/2013 23:59:59 CLS Outpatient GERMAN HU DO [id number] 03/28/2013 08:18:00 03/28/2013 23:59:59 [place] [id number] 03/24/2012 17:04:00 03/24/2012 23:59:59 CLS Outpatient GERMAN HU DO [id number] 09/12/2012 13:28:00 Document Registration [id number] 10/26/2016 13:05:00 10/26/2016 23:59:59 CLS Outpatient JARED RUTH MD [facility] RAD R92.8 ABN MAMMO OF LEFT BREAST [id number] 07/16/2016 07:39:00 07/16/2016 23:59:59 CLS Outpatient JARED RUTH MD [facility] RAD ABNORMALITY OF LEFT BREAST [id number] 06/30/2016 11:15:00 06/30/2016 23:59:59 CLS Outpatient JARED RUTH MD [facility] RAD SCREENING [id number] 10/30/2014 13:21:00 10/30/2014 23:59:59 CLS Outpatient FLAKITO QUACH [facility] RAD SCREENING [id number] 10/11/2013 14:42:00 10/11/2013 23:59:59 CLS Outpatient FLAKITO QUACH [facility] RAD SCREENING [id number] 09/09/2012 12:50:00 Document Registration [id number] 09/03/2011 15:11:00 Document Registration [id number] 04/04/2010 15:16:00 Document Registration
--- NOTE | 2017-05-10 10:45 | ED Chest Pain ---
General Stated Complaint: CHEST PAIN, SWOLLEN KNEE Source: patient Exam Limitations: no limitations History of Present Illness Time seen by provider: 10:43 Initial Comments To ER with a one-week history of sharp left parasternal chest pain that radiates up to the left shoulder. No associated shortness of breath. No cough. Pain is not reproducible. This has been going on for 1 week and she has been taking aspirin daily which does seem to alleviate the pain. No personal history of heart disease. She also has some intermittent tight sensation to the anterior right knee without known injury. Timing/Duration: 1 week, changing over time, intermittent Severity/Quality: moderate Location: central [facility] po SUBSTANCE ABUSE TECHNICIAN: Yes NTG SL SUBSTANCE ABUSE TECHNICIAN: No Associated Symptoms: No abdominal pain, No back pain, No fatigue, No fever/ chills, No headache, No heartburn, No nausea/vomiting, No rash, No shortness of breath, No swelling/lump in chest, No syncope, No weakness Allergies and Home Medications Allergies Coded Allergies: No Known Drug Allergies (Verified Allergy, Unknown, 06/15/07) Home Medications Amitriptyline HCl 10 Mg Tablet, 10 MG PO DAILY, (Reported) Loratadine 10 Mg Tablet, 10 MG PO DAILY, (Reported) Sertraline HCl 100 Mg Tablet, 200 MG PO DAILY, (Reported) Simvastatin 40 Mg Tablet, 40 MG PO HS, (Reported) Review of Systems Constitutional: see HPI EENTM: No Symptoms Reported Respiratory: See HPI, Denies Shortness of Air Cardiovascular: See HPI, Chest Pain Gastrointestinal: See HPI Musculoskeletal: no symptoms reported Skin: no symptoms reported Psychiatric/Neurological: No Symptoms Reported Endocrine: No Symptoms Reported Past Lrbzovj-Ctrguo-Sxlvps Hx Patient Social History Recent Foreign Travel: No Contact w/Someone Who Travel: No Physical Exam Vital Signs Vital Sign - Last 12Hours 05/10/17 10:40 Temp 98.0 Pulse 99 Resp 18 B/P (MAP) 159/107 (124) Pulse Ox 99 O2 Delivery Room Air Capillary Refill : General Appearance: No Apparent Distress, WD/WN HEENT: PERRL/EOMI, TMs Normal Neck: Full Range of Motion, Normal Inspection Respiratory: Chest Non Tender, Lungs Clear, Normal Breath Sounds, No Accessory Muscle Use, No Respiratory Distress Cardiovascular: Regular Rate, Rhythm, Normal Peripheral Pulses Gastrointestinal: Normal Bowel Sounds, Non Tender, Soft Extremity: Normal Capillary Refill, Normal Inspection Neurologic/Psychiatric: Alert, Oriented x3 Skin: Normal Color, Warm/Dry Progress/Results/Core Measures Results/Orders Lab Results Laboratory Tests Test 05/10/17 10:59 Range/Units White Blood Count 5.5 4.3-11.0 10^3/uL Red Blood Count 4.51 4.35-5.85 10^6/uL Hemoglobin 14.6 11.5-16.0 G/DL Hematocrit 42 35-52 % Mean Corpuscular Volume 93 80-99 FL Mean Corpuscular Hemoglobin 32 25-34 PG Mean Corpuscular Hemoglobin Concent 35 32-36 G/DL Red Cell Distribution Width 11.8 10.0-14.5 % Platelet Count 199 130-400 10^3/uL Mean Platelet Volume 10.3 7.4-10.4 FL Neutrophils (%) (Auto) 51 42-75 % Lymphocytes (%) (Auto) 37 12-44 % Monocytes (%) (Auto) 6 0-12 % Eosinophils (%) (Auto) 5 0-10 % Basophils (%) (Auto) 1 0-10 % Neutrophils # (Auto) 2.8 1.8-7.8 X 10^3 Lymphocytes # (Auto) 2.0 1.0-4.0 X 10^3 Monocytes # (Auto) 0.3 0.0-1.0 X 10^3 Eosinophils # (Auto) 0.3 0.0-0.3 10^3/uL Basophils # (Auto) 0.1 0.0-0.1 10^3/uL Prothrombin Time 11.8 L 12.2-14.7 SEC INR Comment 0.9 0.8-1.4 Activated Partial Thromboplast Time 25 24-35 SEC D-Dimer 0.37 0.00-0.49 UG/ML Sodium Level 141 135-145 MMOL/L Potassium Level 3.9 3.6-5.0 MMOL/L Chloride Level 107 98-107 MMOL/L Carbon Dioxide Level 27 21-32 MMOL/L Anion Gap 7 5-14 MMOL/L Blood Urea Nitrogen 18 7-18 MG/DL Creatinine 0.74 0.60-1.30 MG/DL Estimat Glomerular Filtration Rate > 60 BUN/Creatinine Ratio 24 Glucose Level 119 H 70-105 MG/DL Calcium Level 9.2 8.5-10.1 MG/DL Magnesium Level 2.1 1.8-2.4 MG/DL Total Bilirubin 0.3 0.1-1.0 MG/DL Aspartate Amino Transf (AST/SGOT) 24 5-34 U/L Alanine Aminotransferase (ALT/SGPT) 26 0-55 U/L Alkaline Phosphatase 72 40-136 U/L Myoglobin 33.3 10.0-92.0 NG/ML Troponin I < 0.30 <0.30 NG/ML B-Type Natriuretic Peptide 34.8 <100.0 PG/ML Total Protein 6.9 6.4-8.2 GM/DL Albumin 4.0 3.2-4.5 GM/DL Lipase 21 8-78 U/L My Orders Orders - HA ELAM APRN Cbc With Automated Diff (05/10/17 10:43) Magnesium (05/10/17 10:43) Chest 1 View, Ap/Pa Only (05/10/17 10:43) Ekg Tracing (05/10/17 10:43) Cardiac Profile 1 (05/10/17 10:43) Comprehensive Metabolic Panel (05/10/17 10:43) Myoglobin Serum (05/10/17 10:43) Protime With Inr (05/10/17 10:43) Partial Thromboplastin Time (05/10/17 10:43) O2 (05/10/17 10:43) Monitor-Rhythm Ecg Trace Only (05/10/17 10:43) Lipid Panel (05/11/17 06:00) Saline Lock/Iv-Start (05/10/17 10:43) Lipase (05/10/17 10:43) BNP (05/10/17 10:43) Fibrin Degradation Products (05/10/17 10:43) Knee, Right, 3 Views (05/10/17 10:43) Vital Signs/I&O Vital Sign - Last 12Hours 05/10/17 05/10/17 05/10/17 10:40 10:44 10:48 Temp 98.0 Pulse 99 Resp 18 B/P (MAP) 159/107 (124) Pulse Ox 99 99 O2 Delivery Room Air Room Air Room Air Diagnostic Imaging Diagonstic Imaging: Xray Comments NAME: BALDEV COMBS I MED REC#: [id number] PT STATUS: REG ER : 1965 PHYSICIAN: HA ELAM APRN ADMIT DATE: 05/10/17/ER Signed Date of Exam:05/10/17 KNEE, RIGHT, 3 VIEWS EXAMINATION: Three views of the right knee. INDICATION: Right knee pain and swelling. FINDINGS: There is no fracture, dislocation, or radiopaque foreign body. There is moderate joint space narrowing in the medial compartment and osteophyte formation. Minimal osteophytes at the patellofemoral compartment are seen. There is suggestion of a suprapatellar joint effusion. IMPRESSION: Suprapatellar joint effusion. Degenerative changes, mostly involving the medial compartment. Dictated by: Dictated on workstation # [id number] Dict: 05/10/17 1127 Trans: 05/10/17 1129 [id number] Interpreted by: JOSELIN SILVA MD Electronically signed by: JOSELIN SILVA MD 05/10/17 1129 Departure Impression Impression: Primary Impression: Chest pain Additional Impression: Knee effusion, right Disposition: 01 HOME, SELF-CARE Condition: Stable Departure-Patient Inst. Decision time for Depature: 11:58 Referrals: JARED RUTH MD (PCP/Family) Primary Care Physician YULIANA HERNANDEZ MD FACP [facility] Sarah TAVERAS MD, BASHAR J MD Patient Instructions: Chest Pain, NO INSTRUCTIONS GIVEN Add. Discharge Instructions: 1. Return to ER for any concerns 2. Call one of the cardiologists today to make an appointment for follow up for further evaluation 3. HA ELAM APRN May 10, 2017 10:45
[2017-05-10 11:08] LABS: BASOPHILS # (AUTO) 0.1 10^3/uL (0.0-0.1); BASOPHILS % (AUTO) 1 % (0-10); EOSINOPHILS # (AUTO) 0.3 10^3/uL (0.0-0.3); EOSINOPHILS % (AUTO) 5 % (0-10); LYMPHOCYTES % (AUTO) 37 % (12-44); MEAN CORPUSCULAR HEMOGLOBIN 32 PG (25-34); MEAN CORPUSCULAR HGB CONC 35 G/DL (32-36); MEAN CORPUSCULAR VOLUME 93 FL (80-99); MEAN PLATELET VOLUME 10.3 FL (7.4-10.4); MONOCYTES # (AUTO) 0.3 X 10^3 (0.0-1.0); MONOCYTES % (AUTO) 6 % (0-12); NEUTROPHILS # (AUTO) 2.8 X 10^3 (1.8-7.8); NEUTROPHILS % (AUTO) 51 % (42-75); PLATELET COUNT 199 10^3/uL (130-400); RED BLOOD COUNT 4.51 10^6/uL (4.35-5.85); RED CELL DISTRIBUTION WIDTH 11.8 % (10.0-14.5); WHITE BLOOD COUNT 5.5 10^3/uL (4.3-11.0)
[2017-05-10] MEDS ORDERED: SERT100T8 PO (11:09)
[2017-05-10] MEDS ORDERED: SIMV40TA4 PO (11:10)
[2017-05-10] MEDS ORDERED: AMIT10TA6 PO (11:10)
[2017-05-10] MEDS ORDERED: LORA10TA7 PO (11:10)
[2017-05-10 11:24] LABS: INR 0.9 (0.8-1.4); PROTHROMBIN TIME PATIENT 11.8 SEC (12.2-14.7)
--- NOTE | 2017-05-10 11:29 | Diagnostic Imaging Report ---
EXAMINATION: Three views of the right knee. INDICATION: Right knee pain and swelling. FINDINGS: There is no fracture, dislocation, or radiopaque foreign body. There is moderate joint space narrowing in the medial compartment and osteophyte formation. Minimal osteophytes at the patellofemoral compartment are seen. There is suggestion of a suprapatellar joint effusion. IMPRESSION: Suprapatellar joint effusion. Degenerative changes, mostly involving the medial compartment. Dictated by: Dictated on workstation # [id number]
--- NOTE | 2017-05-10 11:31 | Diagnostic Imaging Report ---
PA view of the chest Indication: Chest pain Findings: The lungs are clear. The heart size is normal. There is no effusion or pneumothorax The mediastinum and elisha appear unremarkable. Impression: Unremarkable study. Dictated by: Dictated on workstation # [id number]
[2017-05-10 11:33] LABS: ALANINE AMINOTRANSFERASE 26 U/L (0-55); ANION GAP 7 MMOL/L (5-14); ASPARTATE AMINO TRANSFERASE 24 U/L (5-34); BILIRUBIN,TOTAL 0.3 MG/DL (0.1-1.0); BLOOD UREA NITROGEN 18 MG/DL (7-18); BUN/CREATININE RATIO 24; CALCIUM 9.2 MG/DL (8.5-10.1); CARBON DIOXIDE 27 MMOL/L (21-32); CHLORIDE 107 MMOL/L (98-107); CREATININE SERUM 0.74 MG/DL (0.60-1.30); GFR ESTIMATED > 60; GLUCOSE 119 MG/DL (70-105); LIPASE 21 U/L (8-78); MAGNESIUM 2.1 MG/DL (1.8-2.4); POTASSIUM 3.9 MMOL/L (3.6-5.0); SODIUM 141 MMOL/L (135-145); TOTAL PROTEIN 6.9 GM/DL (6.4-8.2)
[2017-05-10 11:39] LABS: MYOGLOBIN SERUM 33.3 NG/ML (10.0-92.0)
[2017-05-10 12:10] VITALS: BP 131/95
== END 2017-05-10 12:10 | disposition home or self-care (01) ==
LOC: EDUNIT# 10:30 → ER 10:33
DX: R07.2 Precordial pain (principal); M25.461 Effusion, right knee; Z79.82 Long term (current) use of aspirin
CPT/HCPCS: 36415; 71010; 73562; 80053; 83690; 83735; 83874; 83880; 84484; 85025; 85379; 85610; 85730; 93005; 93041

== ENCOUNTER → 2017-09-24 | Outpatient (CLI) | payer OTHER ==
[~2017-09-24] MED LIST: AMIT10TA6 PO; ATOR40TA70 PO; LORA10TA7 PO; SERT100T8 PO; SIMV40TA4 PO
--- NOTE | 2017-09-24 09:42 | Diagnostic Imaging Report ---
INDICATION: Elevated liver function tests. PROCEDURE: US Hepatic (Liver). TECHNIQUE: Multiple real-time grayscale images were obtained over the right upper quadrant in various projections. The liver is normal in size. No discrete liver mass is identified. The gallbladder is without stones or sludge. No wall thickening or pericholecystic fluid is identified. No biliary duct dilatation is seen. The pancreas is poorly visualized due to overlying bowel gas. The right kidney is unremarkable. There is no ascites. IMPRESSION: Unremarkable hepatic ultrasound. Dictated by: Dictated on workstation # [id number]
== END ==
LOC: RAD 08:18
PROVIDERS: ATTEND Family Medicine
DX: R79.89 Other specified abnormal findings of blood chemistry (principal)
CPT/HCPCS: 76705

== ENCOUNTER → 2017-09-27 | Outpatient (CLI) | payer OTHER ==
--- NOTE | 2017-09-27 18:43 | Diagnostic Imaging Report ---
EXAMINATION: Ultrasound of the left breast limited. INDICATION: Abnormal mammogram. FINDINGS: The diagnostic mammogram and ultrasound exam of the left breast performed on 07/16/2016 noted a small nodular density in the lateral aspect of the left breast. This nodular density proved to be echogenic and was felt to be related to a benign process such as a fat lobule. On the diagnostic mammogram of the left breast performed today, the nodular density in question appears stable. On this study, the hyperechoic lesion is again evident and no different in size or appearance. There is no internal vascularity associated with this finding. I do suspect that this is a benign process. I would recommend that a six-month follow-up mammogram and ultrasound exam be performed for continued evaluation. If this finding appears stable over a two-year period then the patient can return to a screening schedule after the mammogram in September of 2018.. IMPRESSION: The small hyperechoic lesion in the left breast seen previously appears stable. Most likely, this is a benign process. Recommendations as above. ACR BI-RADS Category 3: Probably benign findings. Dictated by: Dictated on workstation # [id number]
--- NOTE | 2017-09-27 18:54 | Diagnostic Imaging Report ---
EXAMINATION: Bilateral diagnostic mammogram with 3D tomosynthesis. INDICATION: Abnormal mammogram of left breast. COMPARISON: This study was compared to the prior exams of 06/30/2016, 10/30/2014, and 10/11/2013. At this time, there are no current complaints. The current study was also evaluated with a Computer Aided Detection (CAD) system. FINDINGS: The previous studies have shown a small benign-appearing nodular density in the lateral aspect of the left breast. That finding is again evident and does not appear to have changed significantly. I do suspect this is a benign process. The overall appearance of the breasts is essentially no different as well. There are scattered fibroglandular densities in each breast, which could obscure a lesion. There is no primary or secondary sign of malignancy noted. The 3D tomographic views also fail to show any sign of malignancy. IMPRESSION: 1. There is no evidence of malignancy. 2. The nodular density in the lateral aspect of the left breast seen previously appears stable. Ultrasound is pending for further evaluation of this finding. ACR BI-RADS Category 0: Incomplete. (Needs additional imaging evaluation). Result letter will be mailed to the patient. Note: At least 10% of breast cancer is not imaged by mammography. Dictated by: Dictated on workstation # [id number]
== END ==
LOC: RAD 13:06
PROVIDERS: ATTEND Family Medicine
DX: N64.59 Other signs and symptoms in breast (principal)
CPT/HCPCS: 76642; 77066

== ENCOUNTER 2017-10-13 13:00 | Outpatient (CLI) | payer OTHER ==
[~2017-10-13] VITALS: Ht 160 cm; Wt 111.1 kg
[~2017-10-13 13:00] MED LIST changes: -ATOR40TA70 PO
== END 2017-10-13 13:14 ==
LOC: PREOP 13:00
PROVIDERS: ATTEND Surgery
DX: Z01.818 Encounter for other preprocedural examination (principal)

== ENCOUNTER 2017-10-19 08:58 | Day surgery (SDC) | payer OTHER ==
[~2017-10-19] VITALS: Ht 160 cm; Wt 111.1 kg
[2017-10-19] MEDS ORDERED: LACTATED RINGERS 1,000 ML IV STA (09:08)
[2017-10-19] MEDS ORDERED: LACTATED RINGERS 1,000 ML IV ONE (09:15)
--- NOTE | 2017-10-19 09:30 | Progress Note-Pre Operative ---
Pre-Operative Progress Note H&P Reviewed The H&P was reviewed, patient examined and no changes noted. Date Seen by Provider: October 19, 2017 Time Seen by Provider: : Date H&P Reviewed: October 19, 2017 Time H&P Reviewed: : Pre-Operative Diagnosis: screening colonoscopy ISAEL OLSON DO October 19, 2017 09:30
[2017-10-19 09:34] VITALS: BP 132/99
[2017-10-19] MEDS ORDERED: ATOR40TA70 PO (09:36)
[2017-10-19] MEDS ORDERED: MIDAZOLAM 2 MG/2 ML (VERSED) VIAL ONE (10:23)
[2017-10-19] MEDS ORDERED: PROPOFOL INJECTION 50 ML IV ONE (10:23)
--- NOTE | 2017-10-19 10:54 | Progress Note-Post Operative ---
Post-Operative Progess Note Surgeon (s)/Bread Dough Mixer (s) Surgeon ISAEL OLSON DO Bread Dough Mixer: na Pre-Operative Diagnosis screening colonoscopy Post-Operative Diagnosis normal colon Procedure & Operative Findings Date of Procedure 10/19/17 Procedure Performed/Findings colonoscopy Anesthesia Type per procurement officer Estimated Blood Loss Estimated blood loss (mL): none Specimens/Packing Specimens Removed na ISAEL OLSON DO October 19, 2017 10:54
--- NOTE | 2017-10-19 10:56 | Discharge Inst-Simple/Standard ---
Discharge Inst-Standard Patient Instructions/Follow Up Plan of Care/Instructions/FU: Repeat colonoscopy in 10 years unless family history of colon cancer. If any issues before that be seen at that time. Activity as Tolerated: Yes Discharge Diet: Regular Diet ISAEL OLSON DO October 19, 2017 10:56
[2017-10-19 11:15] VITALS: BP 106/57
[2017-10-19 11:45] VITALS: BP 102/72
--- NOTE | 2017-10-19 11:49 | Anesthesia-General Post-Op ---
MAC Patient Condition Mental Status/LOC: Same as Preop Cardiovascular: Satisfactory Nausea/Vomiting: Absent Respiratory: Satisfactory Pain: Controlled Complications: Absent Post Op Complications Complications None Follow Up Care/Instructions Patient Instructions None needed. Anesthesiology Discharge Order Discharge Order Patient is doing well, no complaints, stable vital signs, no apparent adverse anesthesia problems. No complications reported per nursing. JONN WARD CRNA October 19, 2017 11:49
[2017-10-19 11:55] VITALS: BP 102/72
--- NOTE | 2017-10-19 15:40 | OPERATIVE REPORT ---
DATE OF SERVICE: 10/19/2017 PREOPERATIVE DIAGNOSIS: Screening colonoscopy. POSTOPERATIVE DIAGNOSIS: Normal colonoscopy. PROCEDURE: Colonoscopy. SURGEON: Isael Shipley DO ANESTHESIA: Per HOTEL FRONT OFFICE MANAGER. ESTIMATED BLOOD LOSS: None. COMPLICATIONS: None. INDICATIONS: The patient is a 52-year-old female due for screening colonoscopy. She understands risks and benefits of procedure and wished to proceed with procedure. Consent was signed on the chart. DESCRIPTION OF PROCEDURE: The patient was taken to the endoscopy suite, placed in left lower recumbent position. Timeout was performed. A digital rectal exam was performed and there was no palpable pulse, mass or ulcerations. The scope was inserted in the rectum and advanced all the way to the cecum with minimal difficulty. Prep was adequate. There were no polyps, mass or ulcerations in the cecum, ascending, transverse, descending and sigmoid colon. Once in the rectum, scope was also retroflexed noting some internal hemorrhoidal disease. Scope was returned to its normal position, slowly withdrawn until completely removed. The patient tolerated procedure well without any complications. She was taken to recovery room in stable condition. RECOMMENDATIONS: The patient will need repeat colonoscopy in 10 years unless family history of colon cancer, which would then be 5 years. If she has any problems prior to that, she should be reevaluated at that time. Job ID: [id number] DocumentID: [id number] Dictated Date: 10/19/2017 11:02:22 Aeronautics Teacher Date: 10/19/2017 15:40:10 Dictated By: ISAEL SHIPLEY DO [facility]
== END 2017-10-19 11:55 | disposition home or self-care (01) ==
LOC: ENDO 08:58
PROVIDERS: ATTEND Surgery
DX: Z12.11 Encounter for screening for malignant neoplasm of colon (principal); E78.5 Hyperlipidemia, unspecified; F32.9 Major depressive disorder, single episode, unspecified; E66.9 Obesity, unspecified; Z68.41 Body mass index [BMI] 40.0-44.9, adult

== ENCOUNTER → 2018-04-28 | Outpatient (CLI) | payer OTHER ==
[~2018-04-28] MED LIST changes: +ATOR40TA70 PO
--- NOTE | 2018-04-28 20:51 | Diagnostic Imaging Report ---
INDICATION: Left breast density. Patient presents for six-month followup. Correlation is made with prior mammogram from 09/27/2017 and 30 06/30/2016. 2-D and 3-D unilateral left diagnostic mammography was performed with a Computer Aided Detection (CAD) system. FINDINGS: Scattered fibroglandular densities are identified. Circumscribed slightly lobulated density in the outer aspect of left breast appears to be fairly stable and has benign characteristics. No new mass or malignant appearing microcalcifications are seen. Left axilla is unremarkable. IMPRESSION: Stable left mammogram and left breast nodule when compared with study dating back to 06/30/2016. Even so, directed sonographic interrogation of this area is recommended. ACR BI-RADS Category 0: Incomplete. (Needs additional imaging evaluation). Result letter will be mailed to the patient. Note: At least 10% of breast cancer is not imaged by mammography. Dictated by: Dictated on workstation # [id number]
--- NOTE | 2018-04-28 21:39 | Diagnostic Imaging Report ---
INDICATION: Left breast nodule. Study is performed for followup. Correlation is made with prior exam from 09/27/2017. FINDINGS: Sonographic interrogation of the upper outer left breast again demonstrates echogenic nodule at the 2 o'clock location approximately 3 cm from the nipple. This measures 9 mm x 5 mm x 7 mm, unchanged from prior. No new mass is detected. IMPRESSION: Stable left breast ultrasound. Patient should return in 6 months for one final followup mammogram and ultrasound to show 2 years of stability. ACR BI-RADS Category 3: Probably benign findings. Dictated by: Dictated on workstation # [id number]
== END ==
LOC: RAD 12:26
PROVIDERS: ATTEND Family Medicine
DX: N63.20 Unspecified lump in the left breast, unspecified quadrant (principal); R92.2 Inconclusive mammogram
CPT/HCPCS: 76642

== ENCOUNTER → 2018-12-09 | Outpatient (CLI) | payer OTHER ==
--- NOTE | 2018-12-09 14:46 | Diagnostic Imaging Report ---
Indication: Six-month followup left breast nodule. Correlation is made with prior left breast ultrasound from 04/28/2018. Echogenic lesion 2 o'clock location left breast 3 cm from the nipple again seen. This measures approximately 9 mm x 6 mm x 7 mm, similar to prior exam. No new mass is detected. Impression: Echogenic nodule 2 o'clock location left breast demonstrating 2 years of stability. No further followup is indicated. BI-RADS category 2 ACR BI-RADS Category 2: Benign findings. Result letter will be mailed to the patient. Note: At least 10% of breast cancer is not imaged by mammography. Dictated by: Dictated on workstation # [id number]
--- NOTE | 2018-12-09 17:02 | Diagnostic Imaging Report ---
INDICATION: Left breast nodule. COMPARISON: Correlation is made with prior mammograms from 04/28/2018, 09/27/2017 and 06/30/2016. EXAMINATION: 2D and 3D bilateral diagnostic mammography was performed with CAD. The current study was also evaluated with a Computer Aided Detection (CAD) system. FINDINGS: Scattered fibroglandular densities are identified, bilaterally. Nodular density in the upper-outer left breast is stable. No new mass or malignant appearing microcalcifications are seen. Axillae are unremarkable. IMPRESSION: Stable bilateral mammograms. Additional sonography followup left breast nodule is recommended will be performed today. ACR BI-RADS Category 0: Incomplete. (Needs additional imaging evaluation). Result letter will be mailed to the patient. Note: At least 10% of breast cancer is not imaged by mammography. Dictated on workstation # [id number]
== END ==
LOC: RAD 12:33
PROVIDERS: ATTEND Family Medicine
DX: N63.21 Unspecified lump in the left breast, upper outer quadrant (principal)
CPT/HCPCS: 76642; 77066

== ENCOUNTER → 2020-11-15 | Outpatient (CLI) | payer OTHER ==
[~2020-11-15] MED LIST changes: -AMIT10TA6 PO; +AMT10T PO; +SERT-414 PO; -SERT100T8 PO; +SIMV40TA25 PO; -SIMV40TA4 PO
--- NOTE | 2020-11-15 10:45 | Diagnostic Imaging Report ---
INDICATION: Routine screening. Comparison is made with prior mammogram from 12/09/2018 and 09/27/2017. 2-D and 3-D bilateral screening mammography was performed with CAD. Scattered fibroglandular densities are identified bilaterally. Benign nodule in the upper outer left breast is stable. No spiculated mass or malignant appearing microcalcifications are seen. Axillae are unremarkable. IMPRESSION: BI-RADS Category 2 No mammographic features suspicious for malignancy are identified. ACR BI-RADS Category 2: Benign findings. Result letter will be mailed to the patient. Note: At least 10% of breast cancer is not imaged by mammography. Dictated by: Dictated on workstation # [id number]
== END ==
LOC: RAD 08:15
PROVIDERS: ATTEND Family Medicine
DX: Z12.31 Encounter for screening mammogram for malignant neoplasm of breast (principal); Z01.419 Encounter for gynecological examination (general) (routine) without abnormal findings
CPT/HCPCS: 77063; 77067

== ENCOUNTER → 2020-11-26 | Outpatient (CLI) | payer SELFPAY | LOC: CARD 08:00 | PROVIDERS: ATTEND Pediatrics | DX: R00.2 Palpitations (principal) | CPT/HCPCS: 93225; 93226 ==

== ENCOUNTER → 2020-11-28 | Outpatient (CLI) | payer OTHER ==
--- NOTE | 2020-11-28 14:43 | Diagnostic Imaging Report ---
PROCEDURE: MR imaging cervical spine without contrast. TECHNIQUE: Multiplanar, multisequence MR imaging of the cervical spine was performed without contrast. INDICATION: Chronic cervical region pain. FINDINGS: Multiplanar MR imaging of cervical spine is performed. There is reversal of cervical lordosis. There is mild disc space narrowing from C5 through T1. This results in mild flattening of the ventral thecal sac; however, no significant spinal stenosis is identified. Leftward disc osteophyte complex at C6-C7 results in mild left neural foraminal stenosis. There is no abnormal signal seen within the cervical spinal cord. There is mild increased T2 signal within the endplates adjacent to the C6-C7 disc space. This is likely related to degenerative Modic changes. Small amount of T2 signal is also present within the C6-C7 disc. No paraspinous abnormality is identified. IMPRESSION: Loss of cervical lordosis with localized degenerative disc disease, most pronounced at the C6-C7 and C5-C6 levels. There is no significant spinal stenosis. Endplate spurring is more pronounced toward the left at C6-C7 resulting in mild left neural foraminal stenosis. Signal abnormalities within the endplates surrounding C6-C7 disc are likely due to Modic changes. Discitis is a less likely consideration, and clinical correlation would be of use. Dictated by: Dictated on workstation # [id number]
== END ==
LOC: RAD 09:00
PROVIDERS: ATTEND Pediatrics
DX: M50.323 Other cervical disc degeneration at C6-C7 level (principal); M48.02 Spinal stenosis, cervical region
CPT/HCPCS: 72141